=== PATIENT | male | born 2000 | race African-American/Black ===

== ENCOUNTER 2025-04-25 03:24 | Emergency (ER) | payer MEDICAID ==
[~2025-04-25] VITALS: Ht 170.2 cm; Wt 61.0 kg
[2025-04-25 03:31] VITALS: TEMP 36.8
[2025-04-25 04:15] LABS: BASOPHILS % 0.2 % (0.0-2.0); EOSINOPHILS % 3.2 % (0.0-5.0); HEMATOCRIT. 42.6 % (42.0-52.0); HEMOGLOBIN. 14.1 g/dL (14.0-18.0); LYMPHOCYTES % 53.5 % (20.0-50.0); MEAN PLATELET VOLUME 8.4 fl (7.4-10.4); MONOCYTES % 7.0 % (2.0-8.0); NEUTROPHILS % 36.1 % (40.0-76.0); PLATELET 179 x1000/uL (130-400); RED BLOOD CELL COUNT 4.82 mill/uL (4.7-6.1); RED CELL DISTRIBUTION WIDTH 13.0 % (11.6-14.6)
[2025-04-25 04:28] VITALS: TEMP 98.2
[2025-04-25] MEDS: ACETAMINOPHEN 325MG TABLET PO ONE (04:28)
[2025-04-25] MEDS: KETOROLAC 15MG/ML VIAL IV ONE (04:28)
[2025-04-25] MEDS: SODIUM CHLORIDE 0.9% 1,000 ML IV ONE (04:29)
[2025-04-25 04:34] LABS: CREATININE 1.2 mg/dL (0.6-1.3); UREA NITROGEN BLOOD 10 mg/dL (9-23)
[2025-04-25 04:39] VITALS: O2SAT 100
[2025-04-25] MEDS: KETAMINE HCL 50 MG/ML 10ML IV ONE (05:00)
[2025-04-25] MEDS: PROPOFOL 200MG/20ML VIAL IV ONE (05:00)
[2025-04-25] MEDS ORDERED: IBUP-1455 MT (06:32)
[2025-04-25 06:40] VITALS: BP 128/64; PULSE 59; RESP 12; O2SAT 100
== END 2025-04-25 06:55 | disposition home or self-care (01) ==
LOC: ER 03:24
DX: S43.015A Anterior dislocation of left humerus, initial encounter (principal); Z79.899 Other long term (current) drug therapy; Z98.890 Other specified postprocedural states; X58.XXXA Exposure to other specified factors, initial encounter; Y93.89 Activity, other specified; Y92.89 Other specified places as the place of occurrence of the external cause; Y99.8 Other external cause status
CPT/HCPCS: 80048; 85025; 36415; 73030; 23650; 96361; 96374; 99152; 99285; J3490; J1885; J2704; J7030; Z7610